=== PATIENT | female | born 1950 | race Caucasian/White ===

== ENCOUNTER 2017-12-01 00:50 | Day surgery (SDC) | payer MEDICARE ==
[~2017-12-01] VITALS: Ht 172.7 cm; Wt 75.3 kg
[~2017-12-01 00:50] MED LIST: ACET-1966 PO; GOLYTE PO; LISI-355 PO
[2017-12-01] MEDS ORDERED: PROPOFOL EMUL(*) 10MG/ML 20 ML 20 ML ONE (07:20)
[2017-12-01 08:15] VITALS: BP 129/79
[2017-12-01] MEDS ORDERED: LIDOCAINE/SOD BICARB 8.4% SYR ID ONE (08:50)
[2017-12-01] MEDS ORDERED: NORMOSOL R SOLN(*) 1000 ML BAG 1,000 ML IV PRN (08:50)
[2017-12-01 10:20] VITALS: BP 99/58
--- NOTE | 2017-12-01 10:32 | Short(Outpt) Discharge Summary ---
Discharge Summary Reason for Hosp/Final Diag: (1) Constipation Status: Chronic Hospital Course & Plan: Colonoscopy with biopsies and polypectomy x1 completed without problems. (2) Diarrhea Status: Chronic Departure Discharge to: Home, Self Care Discharge Instructions Home Meds Active Scripts Peg/Electrolytes (GOLYTELY SOLUTION) 4,000 Ml Soln, 4000 ML PO ONCE, #1 GAL 0 Refills Prov:PRASANNA CALABRESE MD 11/29/17 Reported Medications Acetaminophen (TYLENOL) 325 Mg Tablet, 1-2 TAB PO Q4-6H Y for PAIN, TAB 10/05/17 Lisinopril/Hydrochlorothiazide (LISINOPRIL-HCTZ 20-25 MG TAB) 1 Each Tablet, 1 TAB PO QDAY 10/05/17 Follow up Referrals: General Surgery - 12/27/17 @ Surgery, General with Prasanna Calabrese Md You have a follow up appointment scheduled with Dr. Calabrese on 12/27/17, at 11:30am. Diet: Regular Activity: As Tolerated Special Instructions: Your colonoscopy was completed without problems and your prep was excellent (Good Job!!). I took biopsies throughout your colon to look for lymphocytic colitis and I removed a tiny polyp from your colon. I have provided a bowel regimen for you on a separate piece of paper to try and even out your stools and make them more consistent. Try the bowel regimen every day and we'll discuss how you're feeling when I see you back in my office. I'll also go over the biopsy results when I see you back. Problem Qualifiers (1) Constipation: Constipation type: unspecified constipation type Qualified Codes: K59.00 - Constipation, unspecified (2) Diarrhea: Diarrhea type: unspecified type Qualified Codes: R19.7 - Diarrhea, unspecified PRASANNA CALABRESE MD Dec 01, 2017 10:32
[2017-12-01 10:47] VITALS: BP 122/68
[2017-12-01 11:15] VITALS: BP 133/68
[2017-12-01 11:16] VITALS: BP 128/72
[2017-12-01 11:18] VITALS: BP 118/76
== END 2017-12-01 11:35 | disposition home or self-care (01) ==
LOC: OR 00:50
PROVIDERS: ATTEND Surgery
DX: Z12.11 Encounter for screening for malignant neoplasm of colon (principal); K62.1 Rectal polyp
CPT/HCPCS: 00811; 45380; 88305; J2704

== ENCOUNTER → 2017-12-28 | Outpatient (CLI) | payer MEDICARE ==
--- NOTE | 2017-12-29 09:10 | RADIOLOGY IMAGING REPORT ---
FACILITY: [facility] - [place] PATIENT NAME: Maggy Crowley : 1950 MR: [id number] V: [id number] EXAM DATE: ORDERING PHYSICIAN: PRASANNA CALABRESE TECHNOLOGIST: Location: [facility] Patient: Maggy Crowley : 1950 Visit/Account:[id number] Date of Sevice: 12/28/2017 CT of the osseous pelvis without contrast Indication: Left hip pain. Coccyx pain. Further evaluate. Comparison: None available. Technique: Axial CT images were obtained through the pelvis. Reformatted coronal and sagittal images were reviewed. One of the following dose optimization techniques was utilized in the performance of this exam: Autom ated exposure control; adjustment of the mA and/or kV according to the patient's size; or use of an i terative reconstruction technique. Specific details can be referenced in the facility's radiology C T exam operational policy. Findings: No acute fracture deformity is identified involving the bony pelvis, sacrum or coccyx. No evidence to suggest sacral insufficiency fracture. No proximal femur fracture is seen bilaterally. There are mild changes of sacroiliac joint osteoarthritis. Hip joint spaces are maintained. Enthesopa thic changes are noted at the gluteal insertions on the greater trochanters bilaterally. 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 With respect to the soft tissues, suspected underlying fibroid uterus which is incompletely evaluated . There is a small amount of nonspecific free pelvic fluid. Moderate volume of stool noted. No defini tive hip joint effusion. No soft tissue hematoma or fluid collection. IMPRESSION: 1. No acute fracture or osseous abnormality of the bony pelvis, sacrum and coccyx. 2. Mild bilateral sacroiliac joint osteoarthritis. 3. Enthesopathic changes at the gluteal insertions on the greater trochanters. 4. Suspected underlying fibroid uterus with a small volume of nonspecific free pelvic fluid. This cou ld be further assessed with pelvic sonography. Report Dictated By: Valdemar Maki at 12/29/2017 8:59 AM Report E-Signed By: Valdemar Maki at 12/29/2017 9:06 AM WSN:[id number]
== END ==
LOC: CT 00:32
PROVIDERS: ATTEND Surgery
DX: M53.3 Sacrococcygeal disorders, not elsewhere classified (principal); M16.0 Bilateral primary osteoarthritis of hip
CPT/HCPCS: 72192